=== PATIENT | male | born 1980 | race Hispanic/Latino ===

== ENCOUNTER 2020-02-18 16:45 | Outpatient (CLI) | payer BC ==
--- NOTE | 2020-02-18 18:06 | RAD ---
EXAM: LUMBAR SPINE TWO VIEWS: 02/18/20 HISTORY: Low back pain and left knee pain. FINDINGS/IMPRESSION: The disc spaces are adequately preserved. No fracture, dislocation, or other significant acute osseou s process. Very minute changes of spondylosis. POS: RRE
--- NOTE | 2020-02-18 18:07 | RAD ---
EXAM: LEFT KNEE THREE VIEWS: 02/18/20 HISTORY: Left knee pain. FINDINGS/IMPRESSION: Status post ACL repair changes. No acute fracture or dislocation or other osseous abnormality. If there is concern for internal derangement or retear of the ACL replaced tendon, follow-up nonemerg ent MRI study might be of benefit. POS: RRE
== END 2020-02-18 16:46 | disposition home or self-care (01) ==
LOC: SCSRAD 16:45
PROVIDERS: ATTEND Family Medicine
DX: M25.562 Pain in left knee (principal); M54.5 Low back pain; M47.816 Spondylosis without myelopathy or radiculopathy, lumbar region; Z98.890 Other specified postprocedural states
CPT/HCPCS: 72100

== ENCOUNTER 2020-05-18 10:37 | Outpatient (CLI) | payer BC ==
--- NOTE | 2020-05-18 12:26 | MRI ---
MR OF THE LEFT KNEE WITHOUT CONTRAST INDICATION: Left knee pain TECHNIQUE: Axial and coronal PD fat sat, sagittal T2 fat sat, sagittal PD turbo spin echo and T1 darlene nal images were obtained of the left knee. COMPARISON: Left knee radiograph dated February 18, 2020 FINDINGS: Joint effusion: None. Semimembranosus-medial gastrocnemius popliteal cyst: None. Ligaments: There is postprocedural change of an ACL reconstruction. There is complete disruption of t he ACL graft. The PCL, MCL and lateral collateral ligament complex is intact. There is soft tissue edema overlying the lateral aspect of the knee. Extensor mechanism: Intact. Menisci: There is a partial-thickness vertically oriented radial tear involving the anterior junction of the lateral meniscus with partial lateral extrusion. The medial meniscus appears intact. Articular cartilage: Intact. Osseous structures: There is a pivot shift contusion pattern involving the lateral femoral condyle an d posterior tibial plateau. Popliteus and IT band: Normal. IMPRESSION: 1. Complete disruption of the ACL graft. 2. Partial-thickness vertically oriented radial tear involving the anterior junction of the lateral m eniscus with partial lateral extrusion. The medial meniscus appears intact. 3. Pivot shift contusion pattern of the lateral femoral condyle and posterior tibial plateau.
== END 2020-05-18 10:38 | disposition home or self-care (01) ==
LOC: SCSMRI 10:37
PROVIDERS: ATTEND Orthopaedic Surgery
DX: M25.562 Pain in left knee (principal); S83.282A Other tear of lateral meniscus, current injury, left knee, initial encounter

== ENCOUNTER 2023-06-09 16:11 | Outpatient (CLI) | payer BC | END 2023-06-09 16:12 | disposition home or self-care (01) | LOC: SCSRAD 16:11 | PROVIDERS: ATTEND Nurse Practitioner Family | DX: S89.91XA Unspecified injury of right lower leg, initial encounter (principal) ==

== ENCOUNTER 2023-06-12 12:33 | Outpatient (CLI) | payer BC | END 2023-06-12 12:34 | disposition home or self-care (01) | LOC: BICMRI 12:33 | PROVIDERS: ATTEND Orthopaedic Surgery | DX: M23.91 Unspecified internal derangement of right knee (principal); S83.241A Other tear of medial meniscus, current injury, right knee, initial encounter; M67.863 Other specified disorders of tendon, right knee; M25.461 Effusion, right knee; R93.7 Abnormal findings on diagnostic imaging of other parts of musculoskeletal system ==